=== PATIENT | male | born 1945 | race Caucasian/White ===

== ENCOUNTER 2022-08-16 12:25 | Outpatient (CLI) | payer MEDICARE, MEDICAID | END 2022-08-16 23:59 | disposition home or self-care (01) | LOC: CARD DIAG 12:25 | PROVIDERS: ATTEND Internal Medicine Cardiovascular Disease | DX: I08.1 Rheumatic disorders of both mitral and tricuspid valves (principal); R06.02 Shortness of breath | CPT/HCPCS: 93306 ==